=== PATIENT | male | born 1990 | race Native Hawaiian/Other Pacific Islander ===

== ENCOUNTER 2022-06-18 10:42 | Emergency (ER) | payer OTHER ==
[~2022-06-18] VITALS: Ht 188 cm; Wt 83.9 kg
[2022-06-18 10:42] VITALS: BP 120/60; TEMP 98.2
[2022-06-18 11:18] LABS: PLATELET COUNT 262 K/uL (142-355)
[2022-06-18 11:30] LABS: POTASSIUM 4.1 mmol/L (3.6-5.2)
== END 2022-06-18 14:24 ==
LOC: ED 10:42
PROVIDERS: Family Medicine
DX: K64.8 Other hemorrhoids (principal); R11.10 Vomiting, unspecified; R45.851 Suicidal ideations
CPT/HCPCS: 80053; 80307; 81002; 82150; 82272; 83605; 83690; 84484; 85027; 93005; 99283